=== PATIENT | female | born 1945 | race Caucasian/White ===

== ENCOUNTER 2021-06-14 16:22 | Emergency (ER) | payer MEDICARE ==
--- NOTE | 2021-06-14 18:09 | ED Physician Documentation ---
PD HPI HEAD INJURY - Stated complaint Stated Complaint: FACE NUMB/HEAD PX - Chief complaint Chief Complaint: Neuro - History obtained from History obtained from: Patient - History of Present Illness Mechanism of head injury: Fell Where head injury occurred: Home Timing - onset: How many days ago (8) Location of injury: Right, Front Quality of pain: Aching Associated symptoms: Nausea / vomiting, Other (right sided headache frequently, feeling slightly off balance with walking.). No: LOC Symptoms improve with: No: Rest, Meds (tried naproxen without improvement.) Symptoms worsen with: Palpation (on forehead), Movement. No: Light, Noise Contributing factors: No: Anticoagulated, Intoxicated Similar symptoms before: Has not had sx before (did not have headache prior to the injury.) Recently seen: Not recently seen Review of Systems Constitutional: denies: Fever, Chills Eyes: denies: Loss of vision Nose: denies: Rhinorrhea / runny nose, Congestion Throat: denies: Sore throat Respiratory: denies: Cough GI: reports: Nausea. denies: Vomiting, Diarrhea Skin: denies: Abrasion (s), Laceration (s) Musculoskeletal: reports: Neck pain (mild with movement). denies: Back pain Neurologic: reports: Headache, Head injury. denies: Focal weakness, Numbness, Near syncope Psychiatric: denies: Delusions, Anxiety PD PAST MEDICAL HISTORY - Past Medical History Cardiovascular: None Respiratory: None Neuro: TIA Endocrine/Autoimmune: None GI: None - Present Medications Home Medications: Ambulatory Orders Medication Instructions Recorded Confirmed HYDROcod/ACETAM 5/325 [[place] 5/325] 1 ea PO Q6H PRN #12 tablet 06/14/21 Naproxen 250 mg PO BID #20 tablet 06/14/21 Ondansetron Odt [Zofran] 4 mg TL Q6H PRN #20 tablet 06/14/21 - Allergies Allergies/Adverse Reactions: Allergies Allergy/AdvReac Type Severity Reaction Status Date / Time Sulfa (Sulfonamide Allergy Unknown Verified 06/14/21 16:31 Antibiotics) PD ED PE NORMAL - Vitals Vital signs reviewed: Yes - General General: Alert and oriented X 3, No acute distress, Well developed/nourished - HEENT HEENT: Other (right frontal area with some soft tissue tenderness. ) - Neck Neck: Supple, no meningeal sign, No adenopathy, Other (mild upper neck tenderness, but good ROM. ) - Cardiac Cardiac: RRR, No murmur - Respiratory Respiratory: Clear bilaterally - Derm Derm: Normal color, Warm and dry - Extremities Extremities: No tenderness to palpate, Normal ROM s pain - Neuro Neuro: Alert and oriented X 3, delivery aide 2-12 intact, No motor deficit, No sensory deficit, Normal speech Eye Opening: Spontaneous Motor: Obeys Commands Verbal: Oriented GCS Score: 15 - Psych Psych: Normal mood, Normal affect Results - Vitals Vitals: Vital Signs - 24 hr 06/14/21 06/14/21 06/14/21 16:32 16:35 18:25 Temperature 36.5 C Heart Rate 97 90 88 Respiratory 16 18 18 Rate Blood Pressure 180/90 H 173/92 H 173/92 H O2 Saturation 96 98 97 06/14/21 06/14/21 20:06 21:42 Temperature Heart Rate 89 69 Respiratory 18 16 Rate Blood Pressure 158/85 H 150/96 H O2 Saturation 97 95 Oxygen O2 Source Room air - Labs Labs: Laboratory Tests 06/14/21 20:33 Nasal Adenovirus (PCR) NOT DETECTED Nasal B. parapertussis DNA (PCR) NOT DETECTED Nasal Coronavir 229E PCR NOT DETECTED Nasal Coronavir HKU1 PCR NOT DETECTED Nasal Coronavir NL63 PCR NOT DETECTED Nasal Coronavir OC43 PCR NOT DETECTED Nasal Enterovir/Rhinovir PCR NOT DETECTED Nasal Influenza B PCR NOT DETECTED Nasal Influenza A PCR NOT DETECTED Nasal Parainfluen 1 PCR NOT DETECTED Nasal Parainfluen 2 PCR NOT DETECTED Nasal Parainfluen 3 PCR NOT DETECTED Nasal Parainfluen 4 PCR NOT DETECTED Nasal RSV (PCR) NOT DETECTED Nasal B.pertussis DNA PCR NOT DETECTED Nasal C.pneumoniae (PCR) NOT DETECTED Rubén Human Metapneumo PCR NOT DETECTED Nasal M.pneumoniae (PCR) NOT DETECTED Nasal SARS-CoV-2 (PCR) NOT DETECTED - Rads (name of study) head CT Radiology: Prelim report reviewed, Discussed with rads (subdural hematoma with 5 mm midline shift. ), See rad report PD MEDICAL DECISION MAKING - ED course Complexity details: considered differential (sounds concussive/post injury headache. Will get CT to ensure no bleed, etc. ), d/w patient ED course: will need to consult nuerosurgery to eval the subdural images and discuss management, given 8 days post injury and the symptoms per HPI. [facility] [place]. Departure - Departure Clinical Impression: Subdural hematoma Mild concussion Qualifiers: Encounter type: initial encounter Loss of consciousness presence/duration: without LOC Qualified Code(s): S06.0X0A - Concussion without loss of consciousness, initial encounter Post-traumatic headache Qualifiers: Headache chronicity pattern: acute headache Intractability: not intractable Qualified Code(s): G44.319 - Acute post-traumatic headache, not intractable Condition: Stable Record reviewed to determine appropriate education?: Yes Instructions: ED Concussion Follow-Up: LUCIA PAULA DO [Primary Care Provider] - Prescriptions: Naproxen 250 mg PO BID #20 tablet HYDROcod/ACETAM 5/325 [[place] 5/325] 1 ea PO Q6H PRN #12 tablet PRN Reason: Pain Ondansetron Odt [Zofran] 4 mg TL Q6H PRN #20 tablet PRN Reason: Nausea / Vomiting
[2021-06-14] MEDS ORDERED: HYDROcod/ACETAM 5/325 MG TABLET PO STA (18:15)
[2021-06-14] MEDS ORDERED: ONDANSETRON ODT 4 MG TABLET TL STA (18:15)
--- NOTE | 2021-06-14 20:01 | CT Report ---
PROCEDURE: HEAD WO INDICATIONS: fall struck head; headache/dizzy TECHNIQUE: Noncontrast 4.5 mm thick angled axial sections acquired from the foramen magnum to the vertex. For r adiation dose reduction, the following was used: automated exposure control, adjustment of mA and/or kV according to patient size. COMPARISON: None. FINDINGS: Image quality: Excellent. CSF spaces: Basal cisterns are patent. No extra-axial fluid collections. Ventricles are normal in size and shape. Brain: There is a subacute appearing right frontal-temporal subdural hematoma. Subdural hematoma illian ures up to 1 cm in thickness. Subdural hematomas producing mild mass effect on adjacent brain parench yma and causing approximately 5 mm of ahihb-hk-wybw midline shift. Bell-white matter interface is nor mal. Skull and face: Calvarium and visualized facial bones are intact, without suspicious lesions. Sinuses: Visualized sinuses and mastoids are clear. IMPRESSION: 1. Right frontal-temporal subacute appearing subdural hematoma producing approximately 5 mm of right- to-left midline shift. 2. Findings telephoned to Dr. Montiel on 06/14/2021 at 1957 hours. Reviewed by: Marlene Matthews MD, PhD on 06/14/2021 7:59 PM PDT Approved by: Marlene Matthews MD, PhD on 06/14/2021 7:59 PM PDT Station ID: [id number]
--- NOTE | 2021-06-14 20:12 | CT Report ---
PROCEDURE: CERVICAL SPINE WO INDICATIONS: fell and struck head/ has head/neck pain TECHNIQUE: Noncontrast 3 mm thick sections acquired from the skull base to the T4 level. Sagittal and coronal r eformats were then constructed. For radiation dose reduction, the following was used: automated exp osure control, adjustment of mA and/or kV according to patient size. COMPARISON: None. FINDINGS: Image quality: Excellent. Bones: No fractures or dislocations. Visualized superior ribs are intact. Spine degenerative disc d isease and facet arthropathy are noted. Soft tissues: Prevertebral soft tissues are normal in thickness. No paravertebral hematomas. No ap ical pneumothoraces. IMPRESSION: No fracture. No acute osseous lesion. If there is continued clinical concern for pathology, then MRI should be considered for further evaluation. Reviewed by: Marlene Matthews MD, PhD on 06/14/2021 8:11 PM PDT Approved by: Marlene Matthews MD, PhD on 06/14/2021 8:11 PM PDT Station ID: [id number]
[2021-06-14] MEDS ORDERED: KETOROLAC 30 MG/ML VIAL IVP STA (21:32)
[2021-06-14 21:46] LABS: B. PARAPERTUSSIS- RESP PCR PAN NOT DETECTED; B. PERTUSSIS- RESP PCR PANEL NOT DETECTED; C. PNEUMONIAE- RESP PCR PANEL NOT DETECTED; CORONAVIRUS 229E-RESP PCR NOT DETECTED; CORONAVIRUS HKU1-RESP PCR NOT DETECTED; CORONAVIRUS NL63-RESP PCR NOT DETECTED; CORONAVIRUS OC43-RESP PCR NOT DETECTED; HUMAN METAPNEUMOVIRUS NOT DETECTED; INFLUENZA A- RESP PCR PANEL NOT DETECTED; INFLUENZA B - RESP PCR PANEL NOT DETECTED; M. PNEUMONIAE- RESP PCR PANEL NOT DETECTED; PARAINFLUENZA VIRUS 1 NOT DETECTED; PARAINFLUENZA VIRUS 2 NOT DETECTED; PARAINFLUENZA VIRUS 3 NOT DETECTED; PARAINFLUENZA VIRUS 4 NOT DETECTED; RHINOVIRUS/ENTEROVIRUS NOT DETECTED; RSV- RESP PCR PANEL NOT DETECTED; SARS-CoV-2 -RESP PCR PANEL NOT DETECTED
--- NOTE | 2021-06-14 21:56 | ED Physician Documentation ---
ED Addendum - Addendum Addendum: 06/14/21 21:47 76-year-old female with a fall 8 days ago has a head injury and a subdural hematoma that appears the stated age. She has about a centimeter of hematoma with a 5 mm right to left shift. Her images have been reviewed downtown at [facility] by the neurosurgeon Dr. Greenberg. She recommends observation in the emergency department overnight with repeat imaging and treatment of the headache. The patient's biggest complaint today is her headache and she is neurologically intact. 06/15/21 02:56 We have obtained a second image which is again without change the CT reading is impression: 1. Stable right frontal parietal subdural hematoma and associated mass-effect.Here in the emergency department the patient has been resting comfortably she is a happy woman who answers questions easily without a delay in execution of motor commands and appropriately. She has no focal neurologic deficit. She does have a headache and some nausea and treatment for this has been helpful. She will follow up with her primary care doctor for a repeat head CT in 2 weeks time.
[2021-06-14 21:58] LABS: BASOPHILS % (AUTO) 0.5 %; EOSINOPHILS # (AUTO) 0.3 10^3/uL (0.0-0.7); EOSINOPHILS % (AUTO) 3.5 %; HCT - HEMATOCRIT 38.6 % (37.0-47.0); HGB - HEMOGLOBIN 12.4 g/dL (12.0-16.0); LYMPHOCYTES # (AUTO) 2.4 10^3/uL (1.5-3.5); LYMPHOCYTES % (AUTO) 29.6 %; MEAN CORPUSCULAR HEMOGLOBIN 30.5 pg (27.0-31.0); MEAN CORPUSCULAR HGB CONC 32.1 g/dL (32.0-36.0); MEAN CORPUSCULAR VOLUME 94.8 fL (81.0-99.0); MEAN PLATELET VOLUME 10.7 fL (7.9-10.8); MONOCYTES # (AUTO) 0.8 10^3/uL (0.0-1.0); MONOCYTES % (AUTO) 9.8 %; NEUTROPHILS # (AUTO) 4.6 10^3/uL (1.5-6.6); NEUTROPHILS % (AUTO) 56.5 %; PLT - PLATELET COUNT 244 10^3/uL (130-450); RED BLOOD COUNT 4.07 10^6/uL (4.20-5.40); RED CELL DISTRIBUTION WIDTH 12.7 % (12.0-15.0); WHITE BLOOD COUNT 8.1 x10^3/uL (4.8-10.8)
[2021-06-14 22:12] LABS: ALBUMIN 3.5 g/dL (3.2-5.5); ALBUMIN/GLOBULIN RATIO 1.1 (1.0-2.2); BILIRUBIN,TOTAL 0.8 mg/dL (0.2-1.0); CALCIUM 9.1 mg/dL (8.5-10.3); CREATININE 0.7 mg/dL (0.4-1.0); POTASSIUM 4.2 mmol/L (3.5-5.0); TOTAL PROTEIN 6.8 g/dL (6.7-8.2)
[2021-06-15] MEDS ORDERED: HYDROcod/ACETAM 5/325 MG TABLET PO STA (02:24)
[2021-06-15 03:18] VITALS: BP 150/78
--- NOTE | 2021-06-15 08:53 | CT Report ---
PROCEDURE: HEAD WO INDICATIONS: F/U on subdural TECHNIQUE: Noncontrast 4.5 mm thick angled axial sections acquired from the foramen magnum to the vertex. For r adiation dose reduction, the following was used: automated exposure control, adjustment of mA and/or kV according to patient size. COMPARISON: None. FINDINGS: No change in size of the approximately 1 cm subdural hematoma overlying the lateral aspect of the rig ht frontotemporal convexity. This again produces mild mass effect, manifesting as locoregional sulcal effacement as well as approximately 7 mm right to left midline shift at the level of the septum yasmine ucidum and associated subfalcine herniation. The basilar cisterns are patent. No new intracranial hem orrhage. Bell-white matter differentiation is maintained. Global cerebral volume loss and chronic roxi rovascular ischemic changes again noted. IMPRESSION: Stable right cerebral convexity subdural hematoma and associated mass effect. Reviewed by: Shayne Hanna MD on 06/15/2021 8:52 AM PDT Approved by: Shayne Hanna MD on 06/15/2021 8:52 AM PDT Station ID: [id number]
== END 2021-06-15 03:18 | disposition home or self-care (01) ==
LOC: ED 16:22
DX: S06.5X0A Traumatic subdural hemorrhage without loss of consciousness, initial encounter (principal); S06.0X0A Concussion without loss of consciousness, initial encounter; W18.30XA Fall on same level, unspecified, initial encounter; Y92.009 Unspecified place in unspecified non-institutional (private) residence as the place of occurrence of the external cause; G44.319 Acute post-traumatic headache, not intractable; M50.30 Other cervical disc degeneration, unspecified cervical region; Z86.73 Personal history of transient ischemic attack (TIA), and cerebral infarction without residual deficits; Z20.822 Contact with and (suspected) exposure to COVID-19
CPT/HCPCS: 36415; 70450; 72125; 80053; 83690; 85025; 87631; 96374; 99284; A9270; Q0162; 0202U

== ENCOUNTER 2022-07-09 10:04 | Emergency (ER) | payer MEDICARE ==
[2022-07-09 10:13] VITALS: BP 188/80
--- NOTE | 2022-07-09 11:01 | XRAY Report ---
PROCEDURE: Finger(s) LT INDICATIONS: Trauma TECHNIQUE: AP hand, 2 views of the fifth finger(s) acquired. COMPARISON: None FINDINGS: Bones: DIP joint space narrowing and small marginal osteophyte. Generalized decreased osseous mineral ization present. No intrinsic lesion or fracture. Soft tissues: No suspicious soft tissue calcifications. IMPRESSION: Osteoarthritis and osteopenia without fracture Reviewed by: Félix Jeffries MD on 07/09/2022 10:00 AM SHELLY Approved by: Félix Jeffries MD on 07/09/2022 10:00 AM AKFAWN Station ID: [id number]
--- NOTE | 2022-07-09 11:03 | XRAY Report ---
PROCEDURE: Wrist 4 View RT INDICATIONS: Trauma TECHNIQUE: 4 views of the wrist were acquired. COMPARISON: None FINDINGS: Bones: No fractures or dislocations. No suspicious bony lesions. First carpal metacarpal joint spa ce narrowing and subchondral sclerosis Scaphoid view: Unremarkable Soft tissues: No suspicious soft tissue calcifications. IMPRESSION: No evidence of fracture or foreign body Reviewed by: Félix Jeffries MD on 07/09/2022 10:02 AM SHELLY Approved by: Félix Jeffries MD on 07/09/2022 10:02 AM AKDT Station ID: [id number]
[2022-07-09] MEDS ORDERED: HYDROcod/ACETAM 5/325 MG TABLET PO STA (11:58)
--- NOTE | 2022-07-09 12:20 | ED Physician Documentation ---
History of Present Illness - Stated complaint Stated Complaint: FALL/R WRIST INJ - Chief complaint Chief Complaint: Trauma Ext - History obtained from History obtained from: Patient - History of Present Illness Timing: Today Pain level max: 6 Pain level now: 5 - Additonal information Additional information: Patient is a 77-year-old female who presents to the emergency department after a trip and fall this morning she landed on her right wrist causing pain to the wrist. Also has pain in the left fingers. She also struck her forehead on the ground. No loss of consciousness. No neck or back pain. No headache. No vomiting. She states that she did have a subdural hematoma that needed to be evacuated about a year ago. Patient is not on any blood thinners. Worse with movement, better with rest. Patient is right-handed Review of Systems Ten Systems: 10 systems reviewed and negative Constitutional: denies: Fever, Chills Respiratory: denies: Cough GI: denies: Nausea, Vomiting, Diarrhea Skin: denies: Rash Musculoskeletal: denies: Neck pain, Back pain Neurologic: reports: Head injury. denies: Focal weakness, Numbness, Seizure, Confused PD PAST MEDICAL HISTORY - Past Medical History Cardiovascular: None Respiratory: None Neuro: TIA Endocrine/Autoimmune: None GI: None - Present Medications Home Medications: Ambulatory Orders Medication Instructions Recorded Confirmed Aspirin Chewable [[place] 81 mg PO DAILY 07/09/22 07/09/22 Aspirin] Glipizide [Glipizide ER] 5 mg PO DAILY 07/09/22 07/09/22 HYDROcod/ACETAM 5/325 [[place] 5/325] 1 - 2 tablet PO Q6H PRN #14 tablet 07/09/22 Losartan [Cozaar] 50 mg PO DAILY 07/09/22 07/09/22 metFORMIN [Glucophage] 500 mg PO BID 07/09/22 07/09/22 - Allergies Allergies/Adverse Reactions: Allergies Allergy/AdvReac Type Severity Reaction Status Date / Time Sulfa (Sulfonamide Allergy Unknown Verified 06/14/21 16:31 Antibiotics) - Social History Does the pt smoke?: No Smoking Status: Never smoker Does the pt drink ETOH?: No Does the pt have substance abuse?: No PD ED PE NORMAL - Vitals Vital signs reviewed: Yes - General General: Alert and oriented X 3, No acute distress - HEENT HEENT: PERRL, Moist mucous membranes - Neck Neck: Supple, no meningeal sign - Cardiac Cardiac: RRR, Strong equal pulses - Respiratory Respiratory: No respiratory distress, Clear bilaterally - Abdomen Abdomen: Soft, Non tender, Non distended - Derm Derm: Warm and dry - Neuro Neuro: Alert and oriented X 3, pot feeder 2-12 intact, No motor deficit, No sensory deficit, Normal speech Eye Opening: Spontaneous Motor: Obeys Commands Verbal: Oriented GCS Score: 15 - Psych Psych: Normal mood, Normal affect - Free text exam Free text exam: Tender to palpation over the anatomical snuffbox of the right wrist. No deformity. Neurovascular intact. Otherwise normal examination of the right wrist and hand. The left hand has tenderness over the fifth digit, minimal swelling, no deformity. Neurovascular intact. Otherwise normal exam of the extremities. Results - Vitals Vitals: Vital Signs - 24 hr 07/09/22 10:11 Temperature 37.1 C Heart Rate 78 Respiratory 19 Rate Blood Pressure 188/80 H O2 Saturation 100 Oxygen O2 Source Room air - Rads (name of study) R wrist xray Radiology: Final report received, EMP read contemporaneously, See rad report L hand xray Radiology: Final report received, EMP read contemporaneously, See rad report head Ct Radiology: Final report received, EMP read contemporaneously, See rad report PD MEDICAL DECISION MAKING - ED course Complexity details: reviewed results, re-evaluated patient, considered differential, d/w patient ED course: No acute findings on x-rays of the right wrist, left hand or head CT. She is tender over the snuffbox, therefore was placed in a Velcro thumb spica. She will follow-up with her doctor in 1 week for repeat evaluation to exclude any scaphoid injury. Pain well controlled here. We will prescribe pain medications for home. Patient is well-appearing, nontoxic. Afebrile. No evidence of neck or back injury. Patient counseled regarding signs and symptoms for which I believe and urgent re-evaluation would be necessary. Patient with good understanding of and agreement to plan and is comfortable going home at this time This document was made in part using voice recognition software. While efforts are made to proofread this document, sound alike and grammatical errors may occur. Departure - Departure Disposition: 01 Home, Self Care Clinical Impression: Wrist sprain Qualifiers: Encounter type: initial encounter Laterality: right Qualified Code(s): S63.501A - Unspecified sprain of right wrist, initial encounter Forehead abrasion Qualifiers: Encounter type: initial encounter Qualified Code(s): S00.81XA - Abrasion of other part of head, initial encounter Finger sprain Qualifiers: Encounter type: initial encounter Finger: little finger Sprain of finger site: unspecified site Laterality: left Qualified Code(s): S63.617A - Unspecified sprain of left little finger, initial encounter Condition: Good Instructions: ED Head Injury Closed, ED Sprain Wrist Follow-Up: Your,doctor in 1 week [Other] Prescriptions: HYDROcod/ACETAM 5/325 [[place] 5/325] 1 - 2 tablet PO Q6H PRN #14 tablet PRN Reason: Pain Comments: Please follow-up with your doctor for further care. Maintain your self in the brace for the next 1 week. At that point you should have a repeat x-ray performed of your wrist to ensure no scaphoid injury. Please return if you worsen. [facility] in [place]. I am prescribing a short course of narcotic pain medication for you. These are potentially dangerous and addictive medications that should be used carefully. These medications may constipate you. Take an vaub-hkg-rbvxrak stool softener (docusate) twice daily with plenty of water while taking these medications. If you go 24 hours without a bowel movement, take qjex-jyq-nrcvvya miralax, per package instructions. Do not drink or drive while taking these medications. If you received narcotic or sedating medications while in the emergency department, do not drive for 24 hours. Store this medication in a safe, secure place and out of reach of children. It is a violation of federal law to give or sell this medication to another person or to use in a manner other than prescribed. The ED will not refill narcotic prescriptions, including prescriptions lost or stolen. To dispose of unwanted medications: 1. [facility] [address] [facility] [place] has a medication drop box. They accept prescription medications (in pill form) Sunday through Sunday 9:00 a.m. to 5:00 p.m. 2. The [facility] [employer] accepts prescription medications (in pill form only) for disposal year round. Call for more information. 3. Contact the [facility] for the next [facility] sponsored prescription drug collection event. , [phone], or [phone]; Discharge Date/Time: 07/09/22 13:36
--- NOTE | 2022-07-09 12:56 | CT Report ---
PROCEDURE: HEAD WO INDICATIONS: fall, head injury TECHNIQUE: Noncontrast 4.5 mm thick angled axial sections acquired from the foramen magnum to the vertex. For r adiation dose reduction, the following was used: automated exposure control, adjustment of mA and/or kV according to patient size. COMPARISON: None. FINDINGS: Image quality: Excellent. CSF spaces: Basal cisterns are patent. No extra-axial fluid collections. Ventricles are normal in size and shape. Brain: No midline shift. No intracranial masses or hemorrhage. Bell-white matter interface is norm al. Atrophy and chronic ischemic change without intracranial hemorrhage or mass effect. Skull and face: Right parietal escobar holes with associated escobar hole covers. Remainder the calvarium u nremarkable. Bilateral intraocular lens replacements noted Sinuses: Visualized sinuses and mastoids are clear. IMPRESSION: Atrophy and chronic ischemic change without intracranial hemorrhage or mass effect. Reviewed by: Félix Jeffries MD on 07/09/2022 11:55 AM SHELLY Approved by: Félix Jeffries MD on 07/09/2022 11:55 AM SHELLY Station ID: [id number]
== END 2022-07-09 13:36 | disposition home or self-care (01) ==
LOC: ED 10:04
DX: S63.501A Unspecified sprain of right wrist, initial encounter (principal); S00.81XA Abrasion of other part of head, initial encounter; S63.617A Unspecified sprain of left little finger, initial encounter; W19.XXXA Unspecified fall, initial encounter
CPT/HCPCS: 70450; 73110; 73140; 99282; 99284; A9270

== ENCOUNTER 2023-07-31 13:20 | Emergency (ER) | payer MEDICARE ==
[2023-07-31 13:39] VITALS: BP 141/86; O2SAT 94
[2023-07-31 14:27] LABS: BASOPHILS % (AUTO) 0.3 %; EOSINOPHILS # (AUTO) 0.1 10^3/uL (0.0-0.7); HCT - HEMATOCRIT 41.1 % (37.0-47.0); HGB - HEMOGLOBIN 13.3 g/dL (12.0-16.0); LYMPHOCYTES # (AUTO) 0.9 10^3/uL (1.5-3.5); LYMPHOCYTES % (AUTO) 14.9 %; MEAN CORPUSCULAR HEMOGLOBIN 30.5 pg (27.0-31.0); MEAN CORPUSCULAR HGB CONC 32.4 g/dL (32.0-36.0); MEAN CORPUSCULAR VOLUME 94.3 fL (81.0-99.0); MEAN PLATELET VOLUME 10.2 fL (7.9-10.8); MONOCYTES # (AUTO) 0.7 10^3/uL (0.0-1.0); MONOCYTES % (AUTO) 12.1 %; NEUTROPHILS # (AUTO) 4.2 10^3/uL (1.5-6.6); NEUTROPHILS % (AUTO) 71.2 %; PLT - PLATELET COUNT 218 10^3/uL (130-450); RED BLOOD COUNT 4.36 10^6/uL (4.20-5.40); RED CELL DISTRIBUTION WIDTH 13.1 % (12.0-15.0); WHITE BLOOD COUNT 5.9 x10^3/uL (4.8-10.8)
[2023-07-31] MEDS ORDERED: ONDANSETRON 4 MG/2 ML VIAL IVP STA (14:37)
[2023-07-31] MEDS ORDERED: SODIUM CHLORIDE 0.9% 500 ML IV STA (14:37)
[2023-07-31 14:57] LABS: ALBUMIN 3.6 g/dL (3.2-5.5); ALBUMIN/GLOBULIN RATIO 1.1 (1.0-2.2); BILIRUBIN,TOTAL 0.8 mg/dL (0.2-1.0); CALCIUM 9.2 mg/dL (8.5-10.3); CREATININE 0.9 mg/dL (0.6-1.3); POTASSIUM 3.6 mmol/L (3.5-4.5)
[2023-07-31 15:11] LABS: BILIRUBIN,URINE NEGATIVE (NEGATIVE); GLUCOSE, URINE (UA) NEGATIVE (NEGATIVE); KETONES,URINE (UA) NEGATIVE (NEGATIVE); LEUKOCYTE ESTERASE, URINE MODERATE (NEGATIVE); NITRITE,URINE POSITIVE (NEGATIVE); OCCULT BLOOD,URINE MODERATE (NEGATIVE); PROTEIN,URINE 30 mg/dL (NEGATIVE); UROBILINOGEN,URINE 0.2 (NORMAL) E.U./dL (NORMAL)
[2023-07-31] MEDS ORDERED: iohexoL-300 100 ML VIAL IVP ONE (15:21)
[2023-07-31 15:23] LABS: CLARITY,URINE CLOUDY (CLEAR)
[2023-07-31 15:24] LABS: BACTERIA,URINE Many /HPF (None Seen); SQUAMOUS EPITHELIAL CELL,UR RARE Squamous (<= Few); WBC,URINE >25 /HPF (0-5)
[2023-07-31] MEDS ORDERED: cefTRIAXone 1 GM in SODIUM CHLORIDE 0.9% MINIBAG 100 ML IV STA (15:25)
--- NOTE | 2023-07-31 16:17 | CT Report ---
PROCEDURE: ABDOMEN/PELVIS W INDICATIONS: R sided pain CONTRAST: 100mL Omni 300 TECHNIQUE: After the administration of IV contrast, 5 mm thick sections acquired from the diaphragms to the symp hysis. 5 mm thick coronal and sagittal reformats were acquired. For radiation dose reduction, the f ollowing was used: automated exposure control, adjustment of mA and/or kV according to patient size. COMPARISON: None FINDINGS: Image quality: Good Lower chest: Basal scarring and atelectasis. No hiatal hernia. Coronary calcifications and normal hea rt size. Solid organs: The liver is unremarkable. Cholecystectomy clips. No pathologic dilation of the biliary system or pancreatic duct. No splenomegaly. Small adrenal nodules, measuring up to 1.2 cm on the rig ht. Mild right renal edema and pelvocaliectasis. There is a 8 x 7 x 6 mm calcified stone in the right emerald al pelvis. Mild to moderate surrounding inflammatory changes. The pelvis is obscured by metallic israel fact, including the UVJs. Numerous nonobstructing stones are seen within the left kidney. Another non obstructing stone is seen in the mid right kidney. Vessels and lymph nodes: The main portal vein is patent. No abdominal aortic aneurysm. No pathologic lymph nodes by size criteria. Bowel and peritoneum: No evidence of small bowel obstruction. There are colonic diverticula. No patho logic ascites or drainable abscess in the zpbey-xm-dgfd. Body wall: Tiny fat-containing umbilical hernia. Pelvis: Bladder is underdistended. Pelvis is obscured by metallic artifact, including the distal uret ers and UVJ. Bones: Bilateral hip arthroplasties obscuring evaluation. There are degenerative changes. IMPRESSION: 8 mm obstructing right renal pelvis stone. Mild renal edema, including hyperemia of the urothelium, c orrelate with urinalysis for superimposed infection. The bladder and UVJs are obscured by metallic artifact. Multiple nonobstructing intrarenal calculi are seen bilaterally, more on the left. Other findings as above. Small adrenal nodules are probably adenomas, consider nonurgent adrenal prot ocol imaging for confirmation. Reviewed by: Gurpreet Srivastava MD on 07/31/2023 4:16 PM PDT Approved by: Gurpreet Srivastava MD on 07/31/2023 4:16 PM PDT Station ID: [id number]
--- NOTE | 2023-07-31 16:39 | ED Physician Documentation ---
History of Present Illness - Stated complaint Stated Complaint: FEVER,N/V,LOWER BACK PX,SHAKES - Chief complaint Chief Complaint: General - History obtained from History obtained from: Patient - Additonal information Additional information: Patient is a 78-year-old female presenting for evaluation of urinary frequency with nausea and vomiting and fevers for the past 3 to 4 days. Patient states she felt onset of symptoms on with feeling like she was passing a kidney stone as she has had this in the past. She reports having flank pain as well as nausea. She says that on Sunday her symptoms appeared improved and she felt like she had passed the stone. However this weekend she developed fevers. Her last dose of Tylenol was over 4 hours ago. Denies chest pain, cough, shortness of air Review of Systems Constitutional: reports: Fever Cardiac: denies: Chest pain / pressure Respiratory: denies: Dyspnea GI: reports: Abdominal Pain, Nausea. denies: Diarrhea : denies: Frequency, Hematuria PD PAST MEDICAL HISTORY - Past Medical History Cardiovascular: None Respiratory: None Neuro: TIA Endocrine/Autoimmune: None GI: None - Present Medications Home Medications: Ambulatory Orders Medication Instructions Recorded Confirmed Aspirin Chewable [[place] 81 mg PO DAILY 07/09/22 07/09/22 Aspirin] Glipizide [Glipizide ER] 5 mg PO DAILY 07/09/22 07/09/22 HYDROcod/ACETAM 5/325 [[place] 5/325] 1 - 2 tablet PO Q6H PRN #14 tablet 07/09/22 Losartan [Cozaar] 50 mg PO DAILY 07/09/22 07/09/22 metFORMIN [Glucophage] 500 mg PO BID 07/09/22 07/09/22 Ondansetron Odt [Zofran] 4 mg TL Q6H PRN #10 tablet 07/31/23 cephALEXin [Keflex] 500 mg PO Q6H #28 cap 07/31/23 - Allergies Allergies/Adverse Reactions: Allergies Allergy/AdvReac Type Severity Reaction Status Date / Time Sulfa (Sulfonamide Allergy Unknown Verified 06/14/21 16:31 Antibiotics) - Social History Does the pt smoke?: No Smoking Status: Never smoker Does the pt drink ETOH?: No Does the pt have substance abuse?: No PD ED PE NORMAL - General General: Alert and oriented X 3, No acute distress, Well developed/nourished - HEENT HEENT: Atraumatic - Neck Neck: Supple, no meningeal sign - Cardiac Cardiac: RRR, No murmur - Respiratory Respiratory: No respiratory distress, Clear bilaterally - Abdomen Abdomen: Normal bowel sounds, Soft, Non distended, Other (Mild right-sided abdominal tenderness to palpation, no rebound no guarding no mass) - Back Back: Other (Right CVA tenderness to palpation ) - Derm Derm: Warm and dry - Neuro Neuro: Normal speech Results - Vitals Vitals: Vital Signs - 24 hr 07/31/23 13:31 Temperature 36.3 C L Heart Rate 104 H Respiratory 18 Rate Blood Pressure 141/86 H O2 Saturation 94 Oxygen O2 Source Room air - Labs Labs: Laboratory Tests 07/31/23 07/31/23 07/31/23 14:22 14:22 14:53 WBC 5.9 RBC 4.36 Hgb 13.3 Hct 41.1 MCV 94.3 MCH 30.5 MCHC 32.4 RDW 13.1 Plt Count 218 MPV 10.2 Neut # (Auto) 4.2 Lymph # (Auto) 0.9 L [place] # (Auto) 0.7 Eos # (Auto) 0.1 Baso # (Auto) 0.0 Absolute Nucleated RBC 0.00 Nucleated RBC % 0.0 Sodium 134 L Potassium 3.6 Chloride 98 L Carbon Dioxide 28 Anion Gap 8.0 BUN 20 Creatinine 0.9 Estimated GFR (MDRD) 60 L Glucose 206 H Calcium 9.2 Total Bilirubin 0.8 AST 58 H ALT 53 Alkaline Phosphatase 154 H Total Protein 7.0 Albumin 3.6 Globulin 3.4 Albumin/Globulin Ratio 1.1 Lipase 12 Urine Color YELLOW Urine Clarity CLOUDY Urine pH 6.0 Ur Specific [place] 1.010 Urine Protein 30 H Urine Glucose (UA) NEGATIVE Urine Ketones NEGATIVE Urine Occult Blood MODERATE H Urine Nitrite POSITIVE H Urine Bilirubin NEGATIVE Urine Urobilinogen 0.2 (NORMAL) Ur Leukocyte Esterase MODERATE H Urine RBC 6-10 H Urine WBC >25 H Ur Squamous Epith Cells RARE Squamous Urine Bacteria Many H Ur Microscopic Review INDICATED Urine Culture Comments INDICATED PD Medical Decision Making - ED course Complexity details: reviewed results, re-evaluated patient, d/w patient, d/w family ED course: 1637 - Discussed with Dr. Mccoy, urology. Patient can follow-up as an outpatient as she does not have a fever or elevated white count. Agrees with plan for antibiotics for treatment of urine infection. Patient is a 78-year-old female presenting for evaluation of UTI symptoms with reported fever at home. She is afebrile here with last dose of antipyretics being greater than 4 hours ago. Vital signs have been stable. CBC, chemistries were obtained and reviewed and without significant findings. Urine analysis is concerning for infection and patient was started on IV antibiotics. CT scan of the abdomen and pelvis was obtained and reviewed. Patient has bilateral nephrolithiasis including a large stone in the right renal pelvis. Incidental findings of adrenal nodules. I reviewed these findings with patient and family member at bedside.Patient does not appear septic. She is tolerating p.o. Discussed with on-call urologist. No need for any acute interventions but patient can follow-up as an outpatient. Patient understands the need for close follow-up as well as treatment plan with antibiotics. She is counseled on strict return precautions. Departure - Departure Disposition: Home, Self Care Clinical Impression: UTI (urinary tract infection), Nephrolithiasis, Adrenal nodule Condition: Stable Instructions: Kidney Stones, ED UTI Cystitis Female Follow-Up: David Mccoy MD [Provider Admit Priv/Credential] - Prescriptions: cephALEXin [Keflex] 500 mg PO Q6H #28 cap Ondansetron Odt [Zofran] 4 mg TL Q6H PRN #10 tablet PRN Reason: Nausea / Vomiting Comments: You are found to have a urinary tract infection I have started you on an antibiotic. Your CT scan shows that you have stones in bilateral kidneys including a large 1 on the right. You need follow-up with a urologist and [place] I have sent your prescriptions for an antibiotic and antinausea medications to [facility] in [place]. Please return to the emergency department with any worsening symptoms. IMPRESSION: 8 mm obstructing right renal pelvis stone. Mild renal edema, including hyperemia of the urothelium, correlate with urinalysis for superimposed infection. The bladder and UVJs are obscured by metallic artifact. Multiple nonobstructing intrarenal calculi are seen bilaterally, more on the left. Other findings as above. Small adrenal nodules are probably adenomas, consider nonurgent adrenal protocol imaging for confirmation. Forms: PCP List
== END 2023-07-31 17:46 | disposition home or self-care (01) ==
LOC: ED 13:20
DX: N39.0 Urinary tract infection, site not specified (principal); N20.0 Calculus of kidney; E27.8 Other specified disorders of adrenal gland; Z87.442 Personal history of urinary calculi
CPT/HCPCS: 36415; 74177; 80053; 81001; 83690; 85025; 87077; 87086; 87181; 96374; 96375; 99284; Q9967; 81003

== ENCOUNTER 2024-02-04 13:53 | Outpatient (CLI) | payer MEDICARE | END 2024-02-04 23:59 | disposition short-term general hospital (02) | LOC: EMS 13:53 | DX: R42 Dizziness and giddiness (principal); R46.4 Slowness and poor responsiveness; R61 Generalized hyperhidrosis | CPT/HCPCS: A0425; A0429 ==